=== PATIENT | female | born 1985 | race Hispanic/Latino ===

== ENCOUNTER 2024-03-25 21:06 | Emergency (ER) | payer SELFPAY ==
[~2024-03-25] VITALS: Ht 154.9 cm; Wt 83.5 kg
[2024-03-25 21:31] VITALS: PULSE 63; RESP 16; TEMP 98.5; O2SAT 100
[2024-03-25 22:01] LABS: CLARITY,URINE CLOUDY (CLEAR); COLOR,URINE YELLOW (YELLOW); LEUKOCYTE ESTERASE ,URINE 1+ (NEGATIVE); NITRITE,URINE NEGATIVE (NEGATIVE); PH,URINE 6 (5 - 7); PROTEIN,URINE DIPSTICK NEGATIVE (NEGATIVE)
[2024-03-25 22:02] LABS: BILIRUBIN,URINE NEGATIVE (NEGATIVE); GLUCOSE, URINE NEGATIVE (NEGATIVE); KETONES,URINE NEGATIVE (NEGATIVE); URINE UROBILINOGEN 0.2 mg/dL (0.2 - 1)
[2024-03-25 22:19] LABS: AMORPHOUS SEDIMENT,URINE MODERATE (FEW); BACTERIA,URINE MANY /HPF; EPITHELIAL CELLS,URINE MODERATE /LPF; PREGNANCY TEST, URINE NEGATIVE (NEGATIVE); RBC,URINE >50 /HPF (0-5); WBC,URINE (MAN) 21-50 /HPF (0-5)
[2024-03-25] MEDS ORDERED: MACROBID 100 M100 MG PO (22:25)
[2024-03-25] MEDS ORDERED: FLUCONAZOLE150 MG PO (22:25)
== END 2024-03-25 22:30 | disposition home or self-care (01) ==
LOC: ER 21:12
DX: N76.0 Acute vaginitis (principal); N39.0 Urinary tract infection, site not specified
CPT/HCPCS: 81001; 81025; 99283